=== PATIENT | female | born 1975 | race Caucasian/White ===

== ENCOUNTER → 2016-08-22 | Outpatient (CLI) | payer BC ==
--- NOTE | 2016-08-22 16:34 | MAMMOGRAPHY REPORT ---
BILATERAL DIGITAL SCREENING MAMMOGRAM TOMOSYNTHESIS WITH CAD: 08/22/2016 CLINICAL HISTORY: Routine screening. Patient has no complaints. TECHNIQUE: Bilateral breast tomosynthesis in addition to standard 2D mammography was performed. Curr ent study was also evaluated with a Computer Aided Detection (CAD) system. COMPARISON: Comparison is made to exams dated: 08/21/2015 mammogram, 08/18/2014 mammogram, 07/09/2013 m ammogram, 06/19/2013 mammogram, and 07/09/2013 ultrasound - [facility]. BREAST COMPOSITION: The tissue of both breasts is heterogeneously dense, which may obscure small ma sses. FINDINGS: There are two 6 mm nodular asymmetries in the lateral, middle one third and posterior one third of the breast, on the CC view including tomosynthesis images. Although they could represent overlapping fibroglandular tissue, additional spot compression tomosynthesis views and possibly ultr asound are recommended. There is a possible cluster of microcalcifications in the right upper outer posterior breast, warranting spot magnification views. No other suspicious mass, architectural distortion or cluster of microcalcifications is seen bilater ally. IMPRESSION: ACR BI-RADS CATEGORY 0: INCOMPLETE EVALUATION: NEED ADDITIONAL IMAGING EVALUATION The two nodular asymmetries in the lateral left breast and possible right upper outer quadrant micro calcifications need additional imaging evaluation. The patient will be called to schedule an appointment. Approximately 10% of breast cancers are not detected with mammography. A negative mammographic repor t should not delay biopsy if a clinically suggestive mass is present. Angela Mccracken M.D. ay/:08/22/2016 16:07:44 Evp Marketing: Ching Soliman, [facility] letter sent: Addl Imaging 0 BI-RADS Code: ACR BI-RADS Category 0: Incomplete Evaluation: Need Additional Imaging Evaluation
== END | disposition home or self-care (01) ==
LOC: C.MAMM 11:42
PROVIDERS: ATTEND Obstetrics & Gynecology
DX: Z12.31 Encounter for screening mammogram for malignant neoplasm of breast (principal); N64.89 Other specified disorders of breast; R92.0 Mammographic microcalcification found on diagnostic imaging of breast

== ENCOUNTER → 2016-08-25 | Outpatient (CLI) | payer BC ==
--- NOTE | 2016-08-25 13:06 | MAMMOGRAPHY REPORT ---
BILATERAL DIGITAL DIAGNOSTIC MAMMOGRAM TOMOSYNTHESIS AND TARGETED LEFT ULTRASOUND: 08/25/2016 CLINICAL HISTORY: Callback from screening mammogram for possible right breast calcifications and lef t breast asymmetries. TECHNIQUE: Breast tomosynthesis in addition to standard 2D mammography was performed. Spot su chito left CC and MLO tomosynthesis images including C views and spot magnification right cc and ML v iews were obtained. COMPARISON: Comparison is made to exams dated: 08/22/2016 mammogram, 08/21/2015 mammogram, 08/18/2014 mammogram, 07/09/2013 ultrasound, 07/09/2013 mammogram, and 06/19/2013 mammogram - [facility]. BREAST COMPOSITION: The tissue of both breasts is heterogeneously dense, which may obscure small ma sses. FINDINGS: The previously described nodular asymmetries seen within the left lateral breast on the cc tomosynthesis images efface on the spot compression views, without a discrete mammographic mass or other suspicious findings seen in these regions on the additional views. Spot magnification views of the right breast demonstrate faint loosely grouped amorphous and punctat e calcifications throughout the right upper outer quadrant. The calcifications are likely stable da ting back to the 2014 and 2013 exam, however, it is difficult to make an accurate comparison due to differences in mammographic technique (currently using [employer] equipment, previously using [employer] ent on the 2014 and 2013 exams). The calcifications are probably benign and recommend a short inter meryl follow-up in 6 months to confirm stability on spot magnification views. Targeted ultrasound was performed of the left lateral breast in the region of the mammographic asymm etries. A few small cysts were noted during the exam, including an oval anechoic circumscribed shayna gn simple cyst which measures 4 x 2 mm in the left breast at 3:00 periareolar region, as well as a 2 mm simple cyst in the left breast at 12:00 periareolar region. No suspicious solid masses were not ed during the exam. IMPRESSION: ACR-BI-RADS CATEGORY 3: PROBABLY BENIGN, TARGETED ULTRASOUND ACR-BI-RADS CATEGORY 3: [place] OBABLY BENIGN 1. Left lateral breast asymmetries efface on the additional spot compression views, without corresp onding suspicious sonographic abnormality evident. The asymmetries are benign and felt to represent normal overlapping fibroglandular tissue. 2. Faint calcifications throughout the right upper outer quadrant are likely stable dating back to the 2013 exam and are probably benign. Recommend follow-up diagnostic mammograms of the right breas t in 6 months to confirm stability on spot magnification views. The patient has been verbally notified of the results. Approximately 10% of breast cancers are not detected with mammography. A negative mammographic repor t should not delay biopsy if a clinically suggestive mass is present. Yumiko Roman M.D. ah/:08/25/2016 10:32:15 Concrete Panel Installer: Tea MCCLENDON(Mejia)(Theo), [facility] letter sent: Follow Up Recommended 3 BI-RADS Code: ACR-BI-RADS Category 3: Probably Benign Ultrasound BI-RADS: ACR-BI-RADS Category 3: P robably Benign
== END | disposition home or self-care (01) ==
LOC: C.MAMM 08:24
PROVIDERS: ATTEND Obstetrics & Gynecology
DX: R92.0 Mammographic microcalcification found on diagnostic imaging of breast (principal); N64.9 Disorder of breast, unspecified

== ENCOUNTER → 2016-09-27 | Outpatient (CLI) | payer BC | END | disposition home or self-care (01) | LOC: C.PAPS 14:54 | PROVIDERS: ATTEND Obstetrics & Gynecology | DX: Z01.419 Encounter for gynecological examination (general) (routine) without abnormal findings (principal) ==

== ENCOUNTER → 2017-02-27 | Outpatient (CLI) | payer BC ==
--- NOTE | 2017-02-27 14:46 | MAMMOGRAPHY REPORT ---
UNILATERAL RIGHT DIGITAL DIAGNOSTIC MAMMOGRAM TOMOSYNTHESIS WITH CAD: 02/27/2017 CLINICAL HISTORY: 41-year-old woman presents for a follow-up in the right breast to reassess faint mi crocalcifications throughout the upper outer quadrant. Previously observed asymmetries effaced on pr ior diagnostic mammogram and ultrasound images. TECHNIQUE: Right CC and MLO 2-D and tomosynthesis images, spot magnification right CC and ML views w ere obtained. Current study was also evaluated with a Computer Aided Detection (CAD) system. COMPARISON: Comparison is made to exams dated: 08/25/2016 ultrasound, 08/25/2016 mammogram, 08/22/2016 mammogram, 08/21/2015 mammogram, 08/18/2014 mammogram, and 07/09/2013 ultrasound - [facility]. BREAST COMPOSITION: The tissue of the right breast is heterogeneously dense, which may obscure small masses. FINDINGS: The parenchymal pattern of the right breast is similar to prior mammograms. No new asymmet ry, suspicious mass or area of distortion is identified. Again noted are very faint amorphous microc alcifications in the right upper outer quadrant. Based on the spot magnification MLO view the microc alcifications in approximately 2 cm. When comparing back to prior available mammograms, these appear s similar on prior MLO views dating back to at least 2013 and most likely represent benign fibrocysti c change. Given the slight increased conspicuity, which could be due to technical differences, anoth er short interval follow-up right diagnostic mammogram including spot magnification views is recommen ded in 6 months. Annual left mammography will also be due at that time. IMPRESSION: ACR-BI-RADS CATEGORY 3: PROBABLY BENIGN Stable mammographic appearance of the right breast including very faint amorphous and punctate microc alcifications loosely grouped in the right upper outer quadrant, which are likely stable dating back to 2013. Given the slight increased conspicuity, another short interval follow-up right diagnostic m ammogram including spot magnification views is recommended in 6 months. Annual left mammography will also be due at that time. These results and recommendations were discussed with the patient at the time of the exam. Approximately 10% of breast cancers are not detected with mammography. A negative mammographic report should not delay biopsy if a clinically suggestive mass is present. Angela Mccracken M.D. ay/:02/27/2017 12:52:38 Project Analyst: Ching Butt RT(R)(M), [facility] letter sent: Follow Up Recommended 3 BI-RADS Code: ACR-BI-RADS Category 3: Probably Benign
== END | disposition home or self-care (01) ==
LOC: C.MAMM 08:54
PROVIDERS: ATTEND Obstetrics & Gynecology
DX: R92.8 Other abnormal and inconclusive findings on diagnostic imaging of breast (principal)

== ENCOUNTER → 2017-08-29 | Outpatient (CLI) | payer BC ==
--- NOTE | 2017-08-29 13:17 | MAMMOGRAPHY REPORT ---
BILATERAL DIGITAL DIAGNOSTIC MAMMOGRAM TOMOSYNTHESIS WITH CAD AND TARGETED LEFT ULTRASOUND: 08/29/2017 CLINICAL HISTORY: 42-year-old woman presents at time of annual screening exam, and also close follow- up of probably benign amorphous microcalcifications in the right upper outer quadrant. TECHNIQUE: Bilateral breast tomosynthesis in addition to standard 2D mammography was performed. Spo t magnification right CC and ML views were also obtained. Current study was also evaluated with a [employer] Aided Detection (CAD) system. COMPARISON: Comparison is made to exams dated: 02/27/2017 mammogram, 08/25/2016 ultrasound, 08/25/2016 mammogram, 08/22/2016 mammogram, 08/21/2015 mammogram, and 08/18/2014 mammogram - [facility]. BREAST COMPOSITION: The tissue of both breasts is heterogeneously dense, which may obscure small mas ses. FINDINGS: The glandular pattern of the right breast is similar to prior mammograms. No new suspiciou s masses, asymmetries or areas of architectural distortion are identified. The spot magnification vi ews of the right breast redemonstrate faint amorphous microcalcifications in the upper outer middle o ne third of the breast, that appear stable dating back to the spot magnification views obtained on , therefore likely benign. Another 12 month follow-up right diagnostic mammogram including sp ot magnification views is recommended to ensure longer stability. There is a 4.1 x 7.6 mm nodular asymmetry in the lateral, posterior left breast only seen on the CC v iews. On the corresponding tomosynthesis images, there is a 4.1 mm partially circumscribed and obscu red mass, that appears similar to the left CC given the low density and benign mammographic appearanc e as well as 1 year of stability this most likely represents view obtained on 08/22/2016, therefore li melania benign. However, further evaluation with ultrasound was performed. Targeted ultrasound was performed in the lateral left breast. Sonographically normal tissue is seen without a discrete solid or cystic mass. A benign mass such as a cyst or possibly normal fibroglandu lar tissue. However, repeat attention at 12 month follow-up is again recommended including tomosynth esis images and possible ultrasound. IMPRESSION: ACR-BI-RADS CATEGORY 3: PROBABLY BENIGN, TARGETED ULTRASOUND ACR-BI-RADS CATEGORY 3: PRO BABLY BENIGN 1. Stable mammographic appearance of the right breast including a faint punctate microcalcifications in the right upper outer quadrant. Another 12 month follow-up right diagnostic mammogram including spot magnification views is recommended to ensure longer stability. 2. There is an 8 x 4 mm nodular asymmetry in the lateral, posterior left breast on the cc views, wit hout suspicious sonographic correlate identified. Given that this appears very similar to a mammogra m obtained in August 2016 and lack of sonographic correlate this most likely represents a benign finding . However, repeat attention at 12 month follow-up including tomosynthesis images and possible ultras ound is recommended. These results and recommendations were discussed with the patient at the time of the exam. Approximately 10% of breast cancers are not detected with mammography. A negative mammographic report should not delay biopsy if a clinically suggestive mass is present. Angela Mccracken M.D. ay/:08/29/2017 12:24:34 Automation Qa Analyst: Gary SHAHID)(Theo), [facility] letter sent: Follow Up Recommended 3 BI-RADS Code: ACR-BI-RADS Category 3: Probably Benign Ultrasound BI-RADS: ACR-BI-RADS Category 3: Pr obably Benign
== END | disposition home or self-care (01) ==
LOC: C.MAMM 08:35
PROVIDERS: ATTEND Obstetrics & Gynecology
DX: R92.0 Mammographic microcalcification found on diagnostic imaging of breast (principal); N64.89 Other specified disorders of breast